=== PATIENT | female | born 1995 | race Caucasian/White ===

== ENCOUNTER 2017-01-11 00:18 | Outpatient (CLI) | payer OTHER ==
[~2017-01-11] VITALS: Ht 160 cm; Wt 65.7 kg
[2017-01-11] MEDS ORDERED: VALT500T PO (09:35)
[2017-01-11] MEDS ORDERED: ACET50TA PO (09:35)
[2017-01-11] MEDS ORDERED: PREN1TAB11 PO (09:35)
== END 2017-01-11 01:15 | disposition home or self-care (01) ==
LOC: M LDO 00:18
PROVIDERS: ATTEND Obstetrics & Gynecology
DX: O47.1 False labor at or after 37 completed weeks of gestation (principal); Z3A.40 40 weeks gestation of pregnancy

== ENCOUNTER 2017-01-11 09:07 | Inpatient (IN) | payer OTHER ==
[2017-01-11] VITALS (31 sets, daily range): BP systolic 101–151; BP diastolic 56–96
[~2017-01-11] VITALS: Ht 160 cm; Wt 67.1 kg
[2017-01-11] MEDS ORDERED: ACET50TA PO (09:35)
[2017-01-11] MEDS ORDERED: PREN1TAB11 PO (09:35)
[2017-01-11] MEDS ORDERED: VALT500T PO (09:35)
[2017-01-11 10:01] LABS: BASO % 0.1 % (0.0-1.0); EOS # 0.1 K/mm3 (0.0-0.50); EOS % 0.4 % (0.0-3.0); LARGE UNSTAINED CELL % 0.3 % (0.0-4.0); LYMPH # 0.6 K/mm3 (1.5-6.5); MEAN CORPUSCULAR HEMOGLOBIN 31.1 pg (27.0-33.0); MEAN CORPUSCULAR VOLUME 86.4 fl (80.0-96.0); MONO # 0.2 K/mm3 (0.0-0.8); MONO % 1.5 % (0.0-5.0); NEUTROPHILS # 13.4 K/mm3 (1.8-7.7); NEUTROPHILS % 93.8 % (36.0-66.0); PLATELET COUNT, AUTOMATED 160 k/mm3 (150-450); WHITE BLOOD COUNT 14.2 K/mm3 (4.0-10.0)
[2017-01-11] MEDS: LR 1,000 ML IV SCH ×2 (10:01→14:05)
[2017-01-11] MEDS ORDERED: LR 1,000 ML IV ONE (10:15)
[2017-01-11] MEDS ORDERED: FENTANYL 2MCG/ML ROPIVACAINE 0.2% IN 0.9% NACL 200ML IVBAG As Ordered ONE (10:56)
[2017-01-11] MEDS ORDERED: LR 1,000 ML IV SCH (13:45)
[2017-01-11] MEDS ORDERED: OXYTOCIN DRIP 30 UNITS in APPROPRIATE DILUENT 1 EA IV SCH ×2 (13:45→18:03)
[2017-01-11] MEDS ORDERED: ACETAMINOPHEN TAB 650MG DOSE (2X325MG) PO PRN (18:15)
[2017-01-11] MEDS ORDERED: MOM 30ML SUSPENSION UDC PO PRN (18:15)
[2017-01-11] MEDS ORDERED: ONDANSETRON 4MG/2ML VIAL (J2405) IV PRN (18:15)
[2017-01-11] MEDS ORDERED: MEASLES,MUMPS,RUBELLA VACCINE INJ (MMR-II) (90707) SC SCH (18:15)
[2017-01-11] MEDS ORDERED: PROMETHAZINE 25 MG TAB PO PRN (18:15)
[2017-01-11] MEDS ORDERED: DIBUCAINE 1% OINTMENT 30GM TOP PRN (18:15)
[2017-01-11] MEDS ORDERED: DOCUSATE SODIUM 100 MG CAP PO PRN (18:15)
[2017-01-11] MEDS ORDERED: ANUSOL HC CREAM 30GM TOP PRN (18:15)
[2017-01-12 05:55] VITALS: BP 111/57
[2017-01-12] MEDS: PRENATAL VITAMINS CHEWABLE TABLET PO SCH (08:09)
[2017-01-12] MEDS: IBUPROFEN 600 MG TAB PO PRN (08:10)
[2017-01-12 18:00] VITALS: BP 120/64
[2017-01-13 06:13] VITALS: BP 121/72
[2017-01-13] MEDS: PRENATAL VITAMINS CHEWABLE TABLET PO SCH (07:34)
[2017-01-13] MEDS: IBUPROFEN 600 MG TAB PO PRN (07:35)
--- NOTE | 2017-01-13 09:16 | DSES ---
DATE OF ADMISSION: 01/11/2017 DATE OF DISCHARGE: This lady is a 21-year-old 1, now para 1, admitted in active labor. Had a spontaneous vaginal delivery of a female infant, 6 pounds 10 ounces, 3010 grams, scores of 8 and 9 at one and five minutes, respectively. Risk factors are depression, HSV and CF carrier. On discharge, we discussed phlebitis, cystitis, mastitis, endometritis and cellulitis, diet, exercise, pain management, perineal, breast and wound care. She was given meds at discharge. Vital signs: Her blood pressure 121/72, respirations 18, pulse is 70 and temperature is 98.0. Her hemoglobin is 11.8, hematocrit 32.7, platelets are 160. The rest of the examination is unremarkable. She is normocephalic, atraumatic. Neck with full range of motion. Pupils equal and reactive to light. Chest is clear bilaterally to the bases. No wheezes or rhonchi. Distal pulses are symmetric. No evidence of DVT, PE or superficial phlebitis. No costovertebral angle tenderness. Uterus two below. Lochia is moderate. Perineum is intact. No rashes, lesions or pruritus. No arthralgia, myalgia. No complaints of cough, wheeze, shortness of breath or dyspnea on exertion. No chest pain. No bleeding. Neuro complete. No incontinence, urgency or frequency. No nausea, vomiting, diarrhea or constipation. No diabetic issues. No SPORTS A[employer]LY[employer]. Past medical and family history is noncontributory. She does not smoke, drink, or abuse drugs. There is no domestic violence. She is to a soldier. In summary, we have a term gestation delivered a live female infant. Plan discharge for today with medications and followup in the office in 6 weeks' time for checkup.
[2017-01-13] MEDS ORDERED: MOTR200T44 PO (09:19)
[2017-01-13] MEDS ORDERED: DIBU10OI TOP (09:23)
[2017-01-13] MEDS ORDERED: COLA100C5 PO (09:23)
[2017-01-13] MEDS ORDERED: ANUS2.5C2 PR (09:23)
== END 2017-01-13 12:10 | disposition home or self-care (01) | DRG 775 ==
LOC: M LDO 09:07 → M LDI 09:29 → M OBS 19:54
PROVIDERS: ADMIT Obstetrics & Gynecology; ATTEND Obstetrics & Gynecology
PROC: 10E0XZZ Delivery of Products of Conception, External Approach (ICD-10-PCS; principal; 2017-01-11)
DX: O69.82X0 Labor and delivery complicated by other cord entanglement, without compression, not applicable or unspecified (principal); Z37.0 Single live birth; Z3A.39 39 weeks gestation of pregnancy